=== PATIENT | female | born 1995 | race Caucasian/White ===

== ENCOUNTER 2018-12-16 19:06 | Emergency (ER) | payer OTHER ==
[~2018-12-16] VITALS: Ht 170.2 cm; Wt 56.7 kg
== END 2018-12-16 22:14 | disposition home or self-care (01) ==
LOC: ER 19:06
DX: O02.1 Missed abortion (principal); Z34.81 Encounter for supervision of other normal pregnancy, first trimester

== ENCOUNTER 2018-12-18 10:43 | Emergency (ER) | payer OTHER ==
[~2018-12-18] VITALS: Ht 170.2 cm; Wt 56.7 kg
[2018-12-18] MEDS ORDERED: IBUPROFEN600 MG (10:54)
[2018-12-18] MEDS ORDERED: DICLOFENAC SODI50 MG PO (16:25)
== END 2018-12-18 16:48 | disposition home or self-care (01) ==
LOC: ER 10:43
DX: O03.6 Delayed or excessive hemorrhage following complete or unspecified spontaneous abortion (principal)

== ENCOUNTER → 2020-11-18 | Outpatient (CLI) | payer OTHER ==
[~2020-11-18] MED LIST: DICLOFENAC SODI50 MG PO; IBUPROFEN600 MG
== END | disposition home or self-care (01) ==
LOC: PRENATAL 10:00
PROVIDERS: ATTEND Obstetrics & Gynecology Maternal & Fetal Medicine
DX: O35.0XX1 Maternal care for (suspected) central nervous system malformation in fetus, fetus 1 (principal); O35.3XX1 Maternal care for (suspected) damage to fetus from viral disease in mother, fetus 1; O98.512 Other viral diseases complicating pregnancy, second trimester; Z36.89 Encounter for other specified antenatal screening; Z3A.20 20 weeks gestation of pregnancy